=== PATIENT | female | born 1975 | race Caucasian/White ===

== ENCOUNTER → 2017-11-21 | Outpatient (CLI) | payer BC ==
[~2017-11-21] MED LIST: AMOX-362 PO; HYDR-317; IBU800 PO; PER PO; PROM-110 PO
--- NOTE | 2017-11-21 15:50 | RADIOLOGY IMAGING REPORT ---
FACILITY: [facility] PATIENT NAME: Trinh Snider : 1975 MR: [id number] V: [id number] EXAM DATE: ORDERING PHYSICIAN: RAHEEM KOO TECHNOLOGIST: Location: [facility] [place] Patient: Trinh Snider : 1975 Visit/Account:[id number] Date of Sevice: 11/21/2017 PELVIC EXAMINATION: Transabdominal and transvaginal pelvic ultrasound with duplex Doppler evaluation. HISTORY: Ovarian cyst COMPARISON: Uterus: 8.8 x 4.0 x 6.7 cm. cm Myometrium: There are pedunculated fibroids one right lower uterine segment of the cervix measuring 4 .8 x 3.3 x 4.3 cm in size. There is a mid right lateral pedunculated fibroid measuring 2.6 x 2.4 x 2 .5 cm in size. Two small intramural fibroids near the fundus one measuring approximately 1.5 cm. Th e smaller measuring subcentimeter in size. Endometrium: Endometrium measures 12.3 mm. Ovoid echogenic structure measuring approximately 1 x 0.4 x 0.6 cm. Cervix: Fluid within the cervix Ovaries: negative; right ovary cm, left ovary cm right ovary measuring 3.3 x 2.5 x 3.4 cm in size. T here is a simple cyst measuring 2 cm. LEFT ovary measures 2.8 x 2.7 x 3.2 cm in size. There is a se ptated cyst measuring 3.1 x 2.5 cm. Duplex blood flow noted within both ovaries. Adnexa: No adnexal mass lesion. Free pelvic fluid: none IMPRESSION: 1. Increasing size of the paracervical pedunculated fibroid measuring 4.8 x 3.3 x 4.3 cm in size. P revious measurement was 3.1 x 2.9 x 3.0 cm. 2. Slight increase in size of the right lateral peduncu lated fibroid increasing from 2.1 x 2.2 x 1.9 to a present measurement of 2.6 x 2.4 x 2.5 cm 3. Focal area of echogenicity within the endometrium measuring approximately 1 x 0.4 x 0.6 cm. Differential would include a polyp versus focal ureteral hyperplasia. 4. Bilateral ovarian cysts. The septated cyst in left ovary is similar in appearance to the previou s study. Report Dictated By: Ye Simeon MD at 11/21/2017 3:26 PM Report E-Signed By: Ye Simeon MD at 11/21/2017 3:46 PM WSN:[id number]
--- NOTE | 2017-11-22 13:46 | RADIOLOGY IMAGING REPORT ---
FACILITY: [facility] - [place] PATIENT NAME: CARLOTA RODRIGUEZ : [id number] MR: [id number] V: [id number] EXAM DATE: [id number] ORDERING PHYSICIAN: RAHEEM KOO TECHNOLOGIST: Monae Fraire PROCEDURE:BILATERAL DIGITAL SCREENING MAMMOGRAM WITH CAD ASSISTED INTERPRETATION & 3D TOMOSYNTHESIS COMPARISON:Prior mammograms 11/09/16, 11/10/15, 09/23/12. INDICATIONS:screening FINDINGS: The breasts have scattered fibroglandular parenchymal densities. There are no mammographic findings concerning for malignancy. No significant interval change from previous. DIAGNOSTIC CATEGORY 1--NEGATIVE. RECOMMENDATIONS: ROUTINE MAMMOGRAM AND CLINICAL EVALUATION IN 1 YEAR. IMPRESSION: BIRADS 1: Negative. Dictated by: Eliel Pang on 11/22/2017 at 9:12 Transcribed by: SHIVAM on 11/22/2017 at 10:41 Approved by: Eliel Pang on 11/22/2017 at 13:45 [facility]
== END ==
LOC: MAMO 00:47
PROVIDERS: ATTEND Family Medicine
DX: N83.202 Unspecified ovarian cyst, left side (principal); N83.201 Unspecified ovarian cyst, right side
CPT/HCPCS: 76856; 77063; 77067

== ENCOUNTER → 2018-12-10 | Outpatient (CLI) | payer BC ==
[~2018-12-10] MED LIST changes: +ALB6.7R INH; +CITA-137 PO; +CITA-145 PO; +FERR-41 PO
--- NOTE | 2018-12-11 09:56 | RADIOLOGY IMAGING REPORT ---
FACILITY: [facility] PATIENT NAME: CARLOTA RODRIGUEZ : [id number] MR: [id number] V: [id number] EXAM DATE: [id number] ORDERING PHYSICIAN: KAILEE PERDUE TECHNOLOGIST: Monae Fraire PROCEDURE: BILATERAL DIGITAL SCREENING MAMMOGRAM WITH CAD ASSISTED INTERPRETATION & 3D TOMOSYNTHESIS REASON FOR STUDY: Screening. FAMILY HISTORY OF BREAST CANCER: Paternal grandmother. BREAST PROCEDURES/TREATMENTS: None reported. COMPARISON: 11/21/17, 11/09/16, 11/10/15, 09/23/12. VIEWS OBTAINED: Bilateral 2D & 3D full field CC & MLO projections. Bilateral full field XCC projections. BREAST DENSITY: The breasts are heterogeneously dense which can obscure small masses. MAMMOGRAM FINDINGS: The parenchymal pattern has remained stable allowing for difference in mammographic technique & patient positioning. IMPRESSION: BIRADS 1: Negative. DIAGNOSTIC CATEGORY 1--NEGATIVE. RECOMMENDATIONS: ROUTINE MAMMOGRAM AND CLINICAL EVALUATION. Dictated by: Laxmi Ashley M.D. on 12/10/2018 at 16:19 Transcribed by: SHIVAM on 12/11/2018 at 8:19 Approved by: Laxmi Ashley M.D. on 12/11/2018 at 9:52 [facility]
== END ==
LOC: MAMO 00:31
PROVIDERS: ATTEND Obstetrics & Gynecology
DX: Z12.31 Encounter for screening mammogram for malignant neoplasm of breast (principal)
CPT/HCPCS: 77063; 77067